=== PATIENT | male | born 1935 | race Caucasian/White ===

== ENCOUNTER 2020-07-08 12:42 | Day surgery (SDC) | payer MEDICARE, MEDICAID ==
[~2020-07-08] VITALS: Ht 165.1 cm; Wt 71.4 kg
[~2020-07-08 12:42] MED LIST: SODIUM CHLORIDE 0.9% 1,000 ML IV ONE; SODIUM CHLORIDE 0.9% 1,000 ML ONE
[2020-07-08 13:32] LABS: INR 1.1 (0.9-1.1); PROTHROMBIN TIME 11.7 SEC (9.4-11.6)
[2020-07-08 13:42] VITALS: BP 168/76
[2020-07-08] MEDS ORDERED: SODIUM BICARBONATE 50 MEQ/50 ML VIAL ONE (13:46)
[2020-07-08] MEDS ORDERED: IOHEXOL 300 MG/ML 150 ML VIAL ONE (13:46)
[2020-07-08] MEDS ORDERED: FentaNYL CITRATE-PF 100 MCG/2 ML VIAL ONE (14:08)
[2020-07-08] MEDS ORDERED: MIDAZOLAM HCL 2 MG/2 ML VIAL ONE (14:08)
[2020-07-08] MEDS ORDERED: MIDAZOLAM HCL 2 MG/2 ML VIAL IVP ONE ×2 (14:15→14:30)
[2020-07-08] MEDS ORDERED: FentaNYL CITRATE-PF 100 MCG/2 ML VIAL IVP ONE ×2 (14:15→14:30)
[2020-07-08] MEDS ORDERED: LIDOCAINE 1% 30 ML/SOD BICARB 8.4% 4 ML SQ ONE (14:15)
[2020-07-08] MEDS ORDERED: HEPARIN SODIUM 1000 UNITS/NS 1,000 ML IARTER ONE (14:15)
[2020-07-08] MEDS ORDERED: IOHEXOL 300 MG/ML 150 ML VIAL IARTER ONE (14:15)
[2020-07-08] MEDS ORDERED: IOHEXOL 300 MG/ML 50 ML VIAL ONE (14:29)
[2020-07-08] MEDS ORDERED: HydrALAZINE HCL 20 MG/ML VIAL ONE (14:33)
[2020-07-08 14:37] VITALS: BP 128/60
[2020-07-08] MEDS ORDERED: HydrALAZINE HCL 20 MG/ML VIAL IVP ONE (14:45)
== END 2020-07-08 19:00 | disposition home or self-care (01) ==
LOC: CATHLAB 12:42
PROVIDERS: ATTEND Internal Medicine Interventional Cardiology
DX: R94.39 Abnormal result of other cardiovascular function study (principal); I42.9 Cardiomyopathy, unspecified; I77.1 Stricture of artery; I10 Essential (primary) hypertension; E78.5 Hyperlipidemia, unspecified; Z79.82 Long term (current) use of aspirin; Z79.899 Other long term (current) drug therapy
CPT/HCPCS: 36415; 85610; 85730; 93458; 99152; 99153; J0360; J2250; J3010; J3490; J7030; Q9967 ×2